=== PATIENT | male | born 2000 | race Caucasian/White ===

== ENCOUNTER 2021-10-28 23:08 | Observation (INO) ==
[2021-10-28 23:41] LABS: Basophils % 0.2 %; Eosinophils % 0.1 %; Hematocrit 42.6 % (37.5-50.1); Hemoglobin 15.4 g/dL (12.9-16.9); Immature Granulocytes % 0.3 % (0-4); Lymphocytes # 1.7 K/mcL (0.6-4.6); Lymphocytes % 10.8 %; Mean Corpuscular HGB Conc 36.2 g/dL (31.6-35.5); Mean Corpuscular Hemoglobin 29.2 pg (28.0-33.3); Mean Corpuscular Volume 80.7 fL (83.0-100.0); Mean Platelet Volume 8.9 fL (9.4-12.4); Monocytes # 1.4 K/mcL (0.0-1.3); Monocytes % 9.3 %; Neutrophils # 12.3 K/mcL (1.6-8.9); Platelet Count 246 K/mcL (140-400); Red Blood Count 5.28 M/mcL (4.19-5.50); Red Cell Distribution Width 12.4 % (11.5-14.5); Segmented Neutrophils % 79.3 %; White Blood Count 15.5 K/mcL (4.3-11.1)
[2021-10-28] MEDS ORDERED: Iopamidol - 370 500 ML MLS IVP ONE (23:54)
[2021-10-28] MEDS ORDERED: 0.9 % Sodium Chloride 1,000 ML IV ONE (23:54)
[2021-10-28] MEDS ORDERED: Ondansetron 4 MG/2 ML VIAL IVP ONE (23:54)
[2021-10-28] MEDS ORDERED: Ketorolac 30 MG/ML VIAL IVP ONE (23:54)
[2021-10-28 23:56] LABS: Bilirubin,Urine Negative (Negative); Blood,Urine Negative (Negative); Calcium Oxalate Crystals,Urine Present per hpf; Clarity,Urine Clear (Clear); Color,Urine Light-Orange (Yellow); Glucose,Urine (UA) Normal (Normal); Ketones,Urine 60 mg/dL (Negative); Leukocyte Esterase,Urine Small (Negative); Mucus,Urine Few per lpf (None-Few); Nitrite,Urine Negative (Negative); Protein,Urine 50 mg/dL (Neg-Trace); RBC,Urine 0-3 per hpf (0-3); Specific Gravity,Urine > 1.030 (1.010-1.025); Squamous Epithelial Cell,Urine Few per hpf (None-Few); Urobilinogen,Urine Normal (Normal); WBC,Urine 30-50 per hpf (0-3)
[2021-10-28 23:58] LABS: Alanine Aminotransferase 12 Units/L (7-52); Albumin 4.8 g/dL (3.5-5.7); Albumin/Globulin Ratio 1.8 (1.1-2.2); Alkaline Phosphatase 53 Units/L (34-104); Aspartate Amino Transferase 15 Units/L (13-39); BUN/Creatinine Ratio 15 (6-26); Bilirubin,Direct 0.4 mg/dL (0.0-0.2); Bilirubin,Indirect 1.8 mg/dL (0.0-1.0); Bilirubin,Total 2.2 mg/dL (0.3-1.0); Blood Urea Nitrogen 17 mg/dL (6-20); Calcium 9.6 mg/dL (8.6-10.3); Carbon Dioxide 24 mEq/L (23-29); Chloride 101 mEq/L (98-107); Globulin 2.6 g/dL (2.4-3.5); Glucose 106 mg/dL (70-105); Lipase 8 Units/L (11-82); Osmolality,Calculated 280 (280-300); Potassium 3.9 mEq/L (3.5-5.1); Sodium 134 mEq/L (136-145); Total Protein 7.4 g/dL (6.4-8.9)
[2021-10-29] MEDS ORDERED: Morphine Sulfate 2 MG/ML SYRINGE IVP ONE (00:59)
[2021-10-29] MEDS ORDERED: Piperacillin/Tazobactam 3.375 GM in 0.9 % Sodium Chloride Mini Bag 100 ML IVP ONE (00:59)
[2021-10-29] MEDS ORDERED: *HR* HYDROmorphone 2 MG/ML SYRINGE IVP PRN (03:41)
[2021-10-29] MEDS ORDERED: 0.9 % Sodium Chloride 1,000 ML IVC SCH (03:45)
[2021-10-29] MEDS ORDERED: Lidocaine HCL 4 ML Topical Solution (Laryng-O-Jet Kit Sterile Pak) TP ONE (07:21)
[2021-10-29] MEDS ORDERED: Ondansetron 4 MG/2 ML VIAL IVP PRN ×3 (07:43→11:59)
[2021-10-29] MEDS ORDERED: Acetaminophen IV 1,000 MG/100 ML BAG IVPB ONE (07:43)
[2021-10-29] MEDS ORDERED: Gabapentin 300 MG CAPSULE PO ONE ×2 (07:43→11:59)
[2021-10-29] MEDS ORDERED: Famotidine 20 MG/2 ML VIAL IVP SCH (07:44)
[2021-10-29] MEDS ORDERED: Ringers Solution, Lactated 1,000 ML IVC SCH (07:45)
[2021-10-29] MEDS ORDERED: Piperacillin/Tazobactam 3.375 GM in 0.9 % Sodium Chloride Mini Bag 100 ML IVPB SCH (08:00)
[2021-10-29] MEDS ORDERED: *HR* FentaNYL (PF) 100 MCG/2 ML VIAL ONE (08:32)
[2021-10-29] MEDS ORDERED: *HR* Midazolam HCl 2 MG/2 ML VIAL ONE (08:32)
[2021-10-29] MEDS ORDERED: Ondansetron 4 MG/2 ML VIAL ONE (08:32)
[2021-10-29] MEDS ORDERED: *HR* Succinylcholine 200 MG/10 ML VIAL IVP ONE (08:32)
[2021-10-29] MEDS ORDERED: Lidocaine -MPF 2% 5 ML VIAL ONE (08:32)
[2021-10-29] MEDS ORDERED: *HR* Propofol 200 MG/20 ML VIAL IVP ONE (08:32)
[2021-10-29] MEDS ORDERED: *HR* Rocuronium Bromide 50 MG/5 ML VIAL ONE (08:33)
[2021-10-29] MEDS ORDERED: *HR* HYDROmorphone PF 0.5 MG/0.5 ML SYRINGE IVP PRN (08:38)
[2021-10-29] MEDS ORDERED: *HR* Meperidine 25 MG/ML SYRINGE IVP PRN (08:38)
[2021-10-29] MEDS ORDERED: *HR* Magnesium Sulfate 1 GM/2 ML VIAL ONE (09:26)
[2021-10-29] MEDS ORDERED: *HR* HYDROMORPHONE 2 MG/ML VIAL ONE (09:36)
[2021-10-29] MEDS ORDERED: Sugammadex Sodium 200 MG/2 ML VIAL IV ONE (09:55)
[2021-10-29] MEDS ORDERED: *HR* OxyCODONE/APAP 5/325 TABLET PO PRN (11:59)
[2021-10-29] MEDS: Ketorolac 30 MG/ML VIAL IVP SCH ×3 (12:31→23:50)
[2021-10-29] MEDS: Piperacillin/Tazobactam 3.375 GM in 0.9 % Sodium Chloride Mini Bag 100 ML IVPB SCH ×2 (16:43→23:49)
[2021-10-29] MEDS ORDERED: Ketorolac 30 MG/ML VIAL ONE (19:18)
[2021-10-29] MEDS ORDERED: Famotidine 20 MG/2 ML VIAL ONE (19:19)
[2021-10-29] MEDS: Famotidine 20 MG/2 ML VIAL IVP SCH (19:39)
[2021-10-30] MEDS: Famotidine 20 MG/2 ML VIAL IVP SCH (05:26)
[2021-10-30] MEDS: Ketorolac 30 MG/ML VIAL IVP SCH ×2 (05:26→12:48)
[2021-10-30 06:40] LABS: Basophils % 0.1 %; Immature Granulocytes % 0.6 % (0-4); Lymphocytes # 0.8 K/mcL (0.6-4.6); Lymphocytes % 5.5 %; Mean Corpuscular HGB Conc 34.9 g/dL (31.6-35.5); Mean Corpuscular Hemoglobin 28.5 pg (28.0-33.3); Mean Corpuscular Volume 81.9 fL (83.0-100.0); Mean Platelet Volume 9.3 fL (9.4-12.4); Monocytes # 1.1 K/mcL (0.0-1.3); Monocytes % 7.7 %; Neutrophils # 12.3 K/mcL (1.6-8.9); Platelet Count 231 K/mcL (140-400); Red Blood Count 4.52 M/mcL (4.19-5.50); Red Cell Distribution Width 12.4 % (11.5-14.5); Segmented Neutrophils % 86.1 %; White Blood Count 14.3 K/mcL (4.3-11.1)
[2021-10-30 06:50] LABS: Hemoglobin 12.9 g/dL (12.9-16.9)
[2021-10-30] MEDS ORDERED: Ibuprofen 800 MG TABLET PO ONE (07:21)
[2021-10-30] MEDS: Piperacillin/Tazobactam 3.375 GM in 0.9 % Sodium Chloride Mini Bag 100 ML IVPB SCH (10:49)
[2021-10-30 11:20] VITALS: BP 106/60; PULSE 61; TEMP 97.5; O2SAT 99
== END 2021-10-30 13:13 | disposition home or self-care (01) ==
LOC: 4WAOSI 23:08 → EMEROOARM 23:08 → 4WAOSI 10-29 01:31
PROVIDERS: ADMIT Surgery; ATTEND Surgery